=== PATIENT | female | born 1965 | race Caucasian/White ===

== ENCOUNTER 2020-09-13 13:40 | Outpatient (CLI) | payer BC ==
[2020-09-14 06:02] LABS: SARS-CoV-2 PCR by NAA Not Detected (NotDetected)
== END 2020-09-13 13:41 | disposition home or self-care (01) ==
LOC: CSHLAB 13:40
PROVIDERS: ATTEND Internal Medicine Gastroenterology
DX: Z20.822 Contact with and (suspected) exposure to COVID-19 (principal); Z12.11 Encounter for screening for malignant neoplasm of colon
CPT/HCPCS: 87635; U0003; U0005

== ENCOUNTER 2020-09-15 07:44 | Day surgery (SDC) | payer BC ==
[2020-09-14 12:17] VITALS: BMI 39.9
[2020-09-15] MEDS ORDERED: Lidocaine 1% MPF 2 ML VIAL ONE (08:00)
[2020-09-15] MEDS ORDERED: PROPOFOL 40 ML ONE (09:19)
[2020-09-15] MEDS ORDERED: Lidocaine 1% PF 5 ML VIAL ONE (09:55)
[2020-09-15] MEDS ORDERED: PROPOFOL 20 ML ONE (10:05)
== END 2020-09-15 11:40 | disposition home or self-care (01) ==
LOC: CSHSDC 07:44
PROVIDERS: ATTEND Internal Medicine Gastroenterology
PROC: 0DJD8ZZ Inspection of Lower Intestinal Tract, Via Natural or Artificial Opening Endoscopic (ICD-10-PCS; principal; 2020-09-15)
DX: Z12.11 Encounter for screening for malignant neoplasm of colon (principal); K64.9 Unspecified hemorrhoids; E66.9 Obesity, unspecified; E78.5 Hyperlipidemia, unspecified; I10 Essential (primary) hypertension; F41.8 Other specified anxiety disorders; I25.10 Atherosclerotic heart disease of native coronary artery without angina pectoris
CPT/HCPCS: J2704

== ENCOUNTER 2021-06-11 16:59 | Emergency (ER) | payer BC ==
[2021-06-11] MEDS ORDERED: Ibuprofen 200 MG TAB ONE (19:36)
== END 2021-06-11 19:40 | disposition home or self-care (01) ==
LOC: CSHERS 16:59
DX: H65.91 Unspecified nonsuppurative otitis media, right ear (principal); I10 Essential (primary) hypertension; E78.5 Hyperlipidemia, unspecified; E78.00 Pure hypercholesterolemia, unspecified; Z87.891 Personal history of nicotine dependence
CPT/HCPCS: 99282

== ENCOUNTER 2022-06-28 16:17 | Outpatient (CLI) | payer BC | END 2022-06-28 16:18 | disposition home or self-care (01) | LOC: CSHRAD 16:17 | PROVIDERS: ATTEND Family Medicine | DX: S69.91XA Unspecified injury of right wrist, hand and finger(s), initial encounter (principal) ==

== ENCOUNTER 2023-02-28 12:41 | Outpatient (CLI) | payer BC | END 2023-02-28 12:42 | disposition home or self-care (01) | LOC: CSHCT 12:41 | PROVIDERS: ATTEND Psychiatry & Neurology Neurology | DX: R56.9 Unspecified convulsions (principal) | CPT/HCPCS: 70450 ==

== ENCOUNTER 2023-11-06 13:55 | Outpatient (CLI) | payer BC | END 2023-11-06 13:56 | disposition home or self-care (01) | LOC: CSHMRI 13:55 | PROVIDERS: ATTEND Psychiatry & Neurology Neurology | DX: R56.9 Unspecified convulsions (principal) | CPT/HCPCS: 70553 ==

== ENCOUNTER 2025-05-25 13:08 | Outpatient (CLI) | payer BC | END 2025-05-25 13:09 | disposition home or self-care (01) | LOC: CSHRAD 13:08 | PROVIDERS: ATTEND Family Medicine | DX: M25.511 Pain in right shoulder (principal); M19.011 Primary osteoarthritis, right shoulder ==